=== PATIENT | female | born 1970 | race Caucasian/White ===

== ENCOUNTER 2022-04-22 15:31 | Inpatient (IN) | payer MEDICAID ==
[~2022-04-22] VITALS: Ht 160 cm; Wt 76.7 kg
[2022-04-22 15:35] VITALS: BP_SYST 168
--- NOTE | 2022-04-22 16:34 | NUR ---
Placed in room 04 . Placed on cardiac sonographer, blood pressure machine and pulse oximeter. To gown for exam. Side rails up. Report given to MARLYN TRINIDAD.
[2022-04-22] MEDS ORDERED: ASPIRIN 81 MG TAB.CHEW PO ONE (16:45)
[2022-04-22] MEDS ORDERED: guaiFENesin/DEXTROMETHORPHAN 10 ML UDC PO ONE (16:45)
[2022-04-22] MEDS ORDERED: ALBUTEROL SULFATE 0.083% 2.5 MG/3 ML VIAL.NEB INH ONE (16:45)
[2022-04-22] MEDS ORDERED: methylPREDNISolone SOD SUCC/PF 62.5 MG/ML VIAL IVP ONE (16:45)
[2022-04-22] MEDS ORDERED: IPRATROPIUM BROM 0.5 MG/2.5 ML VIAL.NEB (ATROVENT) INH ONE (16:45)
[2022-04-22 16:59] LABS: BASOPHILS # (AUTO) 0.1 K/uL (0.0-0.2); BASOPHILS % (AUTO) 0.8 % (0.0-2.0); EOSINOPHILS # (AUTO) 0.2 K/uL (0.0-0.4); EOSINOPHILS % (AUTO) 2.2 % (0.0-4.0); HEMATOCRIT 44.5 % (36-48); HEMOGLOBIN 14.9 g/dL (12.0-16.0); LYMPHOCYTES # (AUTO) 2.3 K/uL (1.0-5.5); LYMPHOCYTES % (AUTO) 21.8 % (20.5-51.5); MEAN CORPUSCULAR HEMOGLOBIN 33 pg (27-31); MEAN CORPUSCULAR HGB CONC 33 % (32-36); MEAN CORPUSCULAR VOLUME 99 fL (79.0-98.0); MONOCYTES # (AUTO) 0.7 K/uL (0.0-1.0); MONOCYTES % (AUTO) 6.5 % (1.7-9.3); NEUTROPHILS # (AUTO) 7.3 K/uL (1.8-7.7); NEUTROPHILS % (AUTO) 68.7 % (40.0-70.0); PLATELET COUNT (AUTO) 190 K/uL (130-430); RED BLOOD CELL COUNT(AUTO) 4.52 MIL/uL (4.2-6.2); RED CELL DISTRIBUTION WIDTH 13.9 % (9.0-15.0); WHITE BLOOD COUNT (AUTO) 10.6 K/uL (4.8-10.8)
[2022-04-22 17:19] LABS: ANION GAP 6 (5-15); CHLORIDE 101 mmol/L (98-107); CREATININE 0.73 mg/dL (0.55-1.30); GLUCOSE 105 mg/dL (70-99); UREA NITROGEN, BLOOD 20 mg/dL (8-21)
[2022-04-22 17:24] LABS: ALANINE AMINOTRANSFERASE 39 U/L (12-78); ALBUMIN 3.5 g/dL (3.4-4.8); ASPARTATE AMINOTRANSFERASE 29 U/L (10-37); TOTAL BILIRUBIN 0.2 mg/dL (0.0-1.0)
--- NOTE | 2022-04-22 17:24 | NUR ---
PATIENT IN ROOM 4, ON SIPHONER, BBS WHEZES, C/O LOW BACK PAIN, BIBA SEEN BY EDP WITH ORDER ANNA OUT.
[2022-04-22 17:27] LABS: GFR AFRICAN AMERICAN 108 mL/min (>90)
--- NOTE | 2022-04-22 18:17 | NUR ---
COVID AND INFLUENZA SWABS OBTAINED AND SENT TO LAB.
--- NOTE | 2022-04-22 18:33 | NUR ---
PATIENT REMAINS IN BED, NO ACUTE DISTRESS NOTED.
--- NOTE | 2022-04-22 19:12 | NUR ---
Admit bed requested Patient will be admitted to care of . Admitted to TELEMETRY unit. Diagnosis Inpatient (Yes or No) Y Observation (Yes or No) N Orientation concerns or request close to nursing station (Yes or No) N Covid Status NEG On vent or bipap N Isolation requirements N Needs a sitter N From Home (Yes or if No enter name of facility) Y Requires Dialysis (Yes or No) N Med Rec Completed (Yes of No) PENDING
--- NOTE | 2022-04-22 19:16 | NUR ---
PATIENT STATES SHE DOES NOT TAKE ANY MEDICATION
--- NOTE | 2022-04-22 20:15 | NUR ---
Care was assumed @ 1925, patient resting in bed, easy to arouse, no voiced c/o pain or discomfort at this time. Informed of plan of care aware will be admitted to the hospital, awaiting room assignment. Patient is alert and oriented, no s/s of any respiratory distress, moist cough noted. abd obese and non tender to palpation with positive bowel sounds. Right ac saline lock remains intact, BLE maikel, face maikel and BUE spoted areas of discoloration. Side rails up will continue to monitor. [id number]% on room air.
[2022-04-22] MEDS ORDERED: ACETAMINOPHEN 325 MG TABLET PO PRN (21:30)
[2022-04-22] MEDS ORDERED: ONDANSETRON HCL 4 MG/2 ML VIAL IVP PRN (21:30)
[2022-04-22] MEDS ORDERED: NALOXONE HCL 0.4 MG/ML AMP (NARCAN) IVP PRN ×2 (21:30)
[2022-04-22] MEDS ORDERED: HYDROcodone/ACETAMIN 5-325 MG TAB (NORCO/ VICODIN) PO PRN (21:30)
[2022-04-22 21:51] VITALS: BP_SYST 152
[2022-04-22] MEDS ORDERED: NORMAL SALINE 5 ML DISP.SYRIN IVF SCH (22:00)
--- NOTE | 2022-04-23 01:17 | NUR ---
PATIENT CONTINUES TO REST, REMAINS EASY TO AROUSE NO C/O AT THIS TIME.
--- NOTE | 2022-04-23 01:43 | NUR ---
PATIENT AWAKE ASKING FOR FOOD, NO VOICED C/O.
[2022-04-23] MEDS ORDERED: MORPHINE 4 MG INJ. 4 MG/ML VIAL IVP ONE (02:15)
--- NOTE | 2022-04-23 02:39 | NUR ---
COMPLETE BED CHANGE DONE ALONG WITH A.M. CARE, SCABBED AREA NOTED TO POSTERIOR NECK. REPOSITIONED FOR COMFORT, NO C/O PAIN AT THIS TIME. PATIENT WAS GIVEN A SANDWHICH AND JUICE. SIDE RAIL REMAIN UP. [id number]%-141/97.
[2022-04-23] MEDS: ALBUTEROL SULFATE 0.083% 2.5 MG/3 ML VIAL.NEB INH SCH ×4 (04:14→15:00)
[2022-04-23] MEDS: IPRATROPIUM BROM 0.5 MG/2.5 ML VIAL.NEB (ATROVENT) INH SCH ×4 (04:14→15:00)
--- NOTE | 2022-04-23 04:22 | NUR ---
AWAKE TALKING TO SELF, NO S/S OF ANY DISTRESS NOTED, RAILS REMAIN UP WILL CONTINUE TO MONITOR.
--- NOTE | 2022-04-23 07:16 | NUR ---
Received report from MARLYN Zamorano. Pt observed resting on gurney in no acute distress at this time. Care to be given as ordered by provider.
[2022-04-23 07:48] LABS: BASOPHILS % (AUTO) 0.2 % (0.0-2.0); HEMATOCRIT 40.5 % (36-48); HEMOGLOBIN 13.8 g/dL (12.0-16.0); LYMPHOCYTES # (AUTO) 0.8 K/uL (1.0-5.5); LYMPHOCYTES % (AUTO) 12.1 % (20.5-51.5); MEAN CORPUSCULAR HEMOGLOBIN 33 pg (27-31); MEAN CORPUSCULAR HGB CONC 34 % (32-36); MEAN CORPUSCULAR VOLUME 98 fL (79.0-98.0); MONOCYTES # (AUTO) 0.2 K/uL (0.0-1.0); MONOCYTES % (AUTO) 3.1 % (1.7-9.3); NEUTROPHILS # (AUTO) 5.7 K/uL (1.8-7.7); NEUTROPHILS % (AUTO) 84.6 % (40.0-70.0); PLATELET COUNT (AUTO) 166 K/uL (130-430); RED BLOOD CELL COUNT(AUTO) 4.14 MIL/uL (4.2-6.2); RED CELL DISTRIBUTION WIDTH 13.7 % (9.0-15.0); WHITE BLOOD COUNT (AUTO) 6.8 K/uL (4.8-10.8)
[2022-04-23] MEDS: NORMAL SALINE 5 ML DISP.SYRIN IVF SCH ×4 (08:00→22:03)
[2022-04-23 08:15] LABS: CALCIUM 8.9 mg/dL (8.4-11.0); CREATININE 0.9 mg/dL (0.55-1.30)
--- NOTE | 2022-04-23 10:19 | NUR ---
PATIENT OBSERVED SPEAKING TO THE WALL IN HER ROOM. ARTICULATED THAT SHE IS 52 YO BUT THAT SHE HAS BEEN FOR 50 OF THOSE YEARS. DISCUSSED WITH HOTEL FRONT DESK CLERK ABOUT A PSYCH EVALUATION. CALL PLACED TO DR. RODRÍGUEZ, ORDER FOR TELEPSYCH EVAL GIVEN.
[2022-04-23] MEDS: METHYLPREDNISOLONE SOD SUCC 40 MG/ML VIAL IVP SCH ×2 (11:17→22:03)
[2022-04-23] MEDS ORDERED: METHYLPREDNISOLONE SOD SUCC 40 MG/ML VIAL ONE (11:24)
[2022-04-23] MEDS ORDERED: MORPHINE 4 MG INJ. 4 MG/ML VIAL ONE (11:25)
--- NOTE | 2022-04-23 11:30 | NUR ---
THE COLOR OF PATIENT'S HAIR CHANGED FROM SILVER TO PURPLE AT SOME POINT DURING THE SHIFT. PT DENIES DYING HAIR BUT REQUESTED SHAMPOO AND A TOWEL TO WASH THE DYE OUT.
--- NOTE | 2022-04-23 14:05 | NUR ---
Cell Tester CENTRAL SUPPLY CLERK received a referral to see homeless pt. CENTRAL SUPPLY CLERK introduced self to pt who has been admitted but is still in ED. Pt. had buzzed hair, dyed pink and was asking for her wallet. CENTRAL SUPPLY CLERK and pt. found wallet and it had fallen. Pt looked inside and gave CENTRAL SUPPLY CLERK a card for Sudheer Fam, from [facility] on [address] [place] [place] [address]. Pt. stated she just received a Sec. 8 voucher for [place]. Pt. stated she cant stay on the steet anymore. Pt. began to get excited, but CENTRAL SUPPLY CLERK tried to calm her and offer reassurance she is in a good place. Pt. stated she tries to stay near the [employer] police station. Pt. was making eye contact and stated to CENTRAL SUPPLY CLERK, "I have been for a long time". CENTRAL SUPPLY CLERK asked pt.what she meant. Pt. continued by stating she is 52 and has been for 48 years. Pt. also stated she has a pincher, pinching her nose inside her head. Pt. was asking for clothing when she is able to leave, pt will need a size 3x pants and 3x shirt and jacket. Pt. will need an Uber ride and a lunch. CENTRAL SUPPLY CLERK provided pt. with homeless resource packets. CENTRAL SUPPLY CLERK spoke to Carter Vee and asked her to request a pscy. consult with dr. Simon Nava. If Dr. Nava finds pt. to be gravely disabled she is to call Dr. Duran. It should be noted, pt denied being suicidal. CENTRAL SUPPLY CLERK will remain available as needed and call Mr. Fam. Addendum: 04/24/22 at 1149 by Roxanne MONREAL Cell Tester CENTRAL SUPPLY CLERK made a call to Sudheer Fam, from [facility] but a person, Dusty stated Usaam is not in the office and Dusty is unable to share any info with this caller due to Hipp[place].
[2022-04-23] MEDS ORDERED: AZITHROMYCIN 250 MG TABLET PO ONE (17:30)
[2022-04-23] MEDS ORDERED: AZITHROMYCIN 250 MG TABLET ONE (18:21)
[2022-04-23] MEDS ORDERED: HYDROcodone/ACETAMIN 10-325 MG TAB ONE (18:24)
[2022-04-23] MEDS: IPRATROPIUM/ALBUTEROL SULFATE 3 ML AMPUL.NEB (DUONEB) INH SCH ×2 (19:59→23:54)
--- NOTE | 2022-04-23 20:40 | NUR ---
PT MADE AWARE THAT SHE WILL BE MOVED TO THE FLOOR, PT HAD NO COMPLAINTS CURRENTLY, RESTING IN BED WITH NO ACUTE DISTRESS, VSS.
--- NOTE | 2022-04-23 21:00 | NUR ---
Patient will be admitted to care of [facility]. Admitted to TELE unit. Will go to room 126A. Belongings list completed. Complete and up to date summary report printed. SBAR report to be given at bedside with opportunity for questions.
--- NOTE | 2022-04-23 21:30 | NUR ---
ADMISSION NOTE Received patient from ER via gurney. Patient admitted with diagnosis of COPD EXACERBATION. Patient is awake, alert, oriented X 4. Patient oriented to hospital room, call light, toileting, pain management and safety-teach back done. Patient informed that their room number is 126A. Personal belongings checked and Belongings List documented. Call light within reach.
[2022-04-23 23:24] VITALS: BP_SYST 148
[2022-04-24] MEDS: IPRATROPIUM/ALBUTEROL SULFATE 3 ML AMPUL.NEB (DUONEB) INH SCH ×6 (02:38→23:33)
--- NOTE | 2022-04-24 05:56 | NUR ---
CONSULTATION PAGED/CALLED Reason for Consultation: HALLUCINATIONS/DELUSIONS Person Who was Notified: MILDRED Consulting Physician: HUNG CAPPS Skid Man Specialty: Ordering Physician: MARCOS
[2022-04-24 06:56] LABS: CALCIUM 8.1 mg/dL (8.4-11.0); CREATININE 0.9 mg/dL (0.55-1.30)
[2022-04-24 07:25] VITALS: BP_SYST 133
--- NOTE | 2022-04-24 07:25 | NUR ---
OPENING NOTE Received patient in bed resting, on breathing treatment at the moment. A/O x 4, Turkish speaking. No pain, no SOB, no distress noted at this time. Bedrest, wheelchair bound but states she is able to walk with assistance. IV to RAC 20g on SL. All needs met at this time, bed locked in lowest position, call light within reach. Will continue to monitor.
[2022-04-24 07:51] LABS: BASOPHILS % (AUTO) 0.1 % (0.0-2.0); HEMOGLOBIN 12.6 g/dL (12.0-16.0); LYMPHOCYTES % (AUTO) 13.7 % (20.5-51.5); MEAN CORPUSCULAR HEMOGLOBIN 34 pg (27-31); MEAN CORPUSCULAR HGB CONC 34 % (32-36); MEAN CORPUSCULAR VOLUME 99 fL (79.0-98.0); MONOCYTES # (AUTO) 0.3 K/uL (0.0-1.0); MONOCYTES % (AUTO) 3.4 % (1.7-9.3); NEUTROPHILS # (AUTO) 6.3 K/uL (1.8-7.7); NEUTROPHILS % (AUTO) 82.8 % (40.0-70.0); PLATELET COUNT (AUTO) 159 K/uL (130-430); RED BLOOD CELL COUNT(AUTO) 3.75 MIL/uL (4.2-6.2); RED CELL DISTRIBUTION WIDTH 13.9 % (9.0-15.0); WHITE BLOOD COUNT (AUTO) 7.6 K/uL (4.8-10.8)
[2022-04-24] MEDS: AZITHROMYCIN 250 MG TABLET PO SCH (08:34)
--- NOTE | 2022-04-24 09:47 | NUR ---
PRN YULY Patient complaining of left hip pain and requested some pain medication. Gave PRN pain medication and will reassess.
[2022-04-24] MEDS: HYDROcodone/ACETAMIN 10-325 MG TAB PO PRN ×2 (09:48→20:56)
[2022-04-24] MEDS: METHYLPREDNISOLONE SOD SUCC 40 MG/ML VIAL IVP SCH (10:41)
--- NOTE | 2022-04-24 10:50 | NUR ---
IV site to RAC became dislodged. MARLYN Ospina replaced IV site to LAC, patent and on SL. Addendum: 04/24/22 at 1057 by Yaritza CHERYN GWEN 22G
[2022-04-24 11:27] VITALS: BP_SYST 144
--- NOTE | 2022-04-24 12:05 | NUR ---
PATIENT ROUNDS patient in bed resting. No pain, no SOB, no distress noted at this time. Breathing even and unlabored, on NC. All needs met at this time, bed locked in lowest position, call light within reach. Will continue to monitor.
--- NOTE | 2022-04-24 12:24 | NUR ---
PSYCH CONSULT Dr. Nava with patient via zoom consult.
[2022-04-24] MEDS: NORMAL SALINE 5 ML DISP.SYRIN IVF SCH ×2 (13:39→22:00)
[2022-04-24] MEDS ORDERED: ARIPiprazole 2 MG TAB PO ONE (14:30)
[2022-04-24] MEDS ORDERED: PARoxetine HCL 20 MG TABLET PO ONE (14:30)
--- NOTE | 2022-04-24 15:50 | NUR ---
PATIENT ROUNDS patient in bed resting. No pain, no SOB, no distress noted at this time. Breathing even and unlabored, on NC. Patient was a little upset stating she was hearing voices, patient stated she was a bit agitated but calmed down. All needs met at this time, bed locked in lowest position, call light within reach. Will continue to monitor.
[2022-04-24 16:24] VITALS: BP_SYST 140
[2022-04-24] MEDS ORDERED: METHYLPREDNISOLONE SOD SUCC 40 MG/ML VIAL IVP SCH (18:00)
--- NOTE | 2022-04-24 18:57 | NUR ---
CLOSING NOTE Patient in bed resting. A/O x 4, Latvian speaking. No pain, no SOB, no distress noted at this time. Bedrest, wheelchair bound but states she is able to walk with assistance. IV to RAC 20g on . All needs met at this time, bed locked in lowest position, call light within reach. Will endorse to nightsmeft nurse. Addendum: 04/24/22 at 1900 by Yaritza Onofre LVN IV site is LAC 22g, patent on .
--- NOTE | 2022-04-24 19:00 | NUR ---
PATIENT SITTING UP IN THE BED, AUDIBLE WHEEZING NOTED, WITH COUGHING, O2 @ 2L VIA NC, SOB NOTED ON EXERTION, ABDOMEN SOFT AND NON DISTENDED, DENIES ANY DISCOMFORT AT THIS TIME
[2022-04-24 20:00] VITALS: BP_SYST 151
[2022-04-25] VITALS: BP_SYST 159
--- NOTE | 2022-04-25 | NUR ---
PATIENT ALERT AND ORIENTED X 3, PATIENT ASSISTED WITH PEFORMING A BED BATH AND LINEN CHANGE, NO DISTRESS NOTED AT THIS TIME
[2022-04-25] MEDS: IPRATROPIUM/ALBUTEROL SULFATE 3 ML AMPUL.NEB (DUONEB) INH SCH ×3 (04:39→11:52)
[2022-04-25 06:41] LABS: BASOPHILS % (AUTO) 0.3 % (0.0-2.0); EOSINOPHILS # (AUTO) 0.1 K/uL (0.0-0.4); EOSINOPHILS % (AUTO) 0.7 % (0.0-4.0); HEMATOCRIT 37.3 % (36-48); HEMOGLOBIN 12.5 g/dL (12.0-16.0); LYMPHOCYTES # (AUTO) 3.2 K/uL (1.0-5.5); LYMPHOCYTES % (AUTO) 27.1 % (20.5-51.5); MEAN CORPUSCULAR HEMOGLOBIN 33 pg (27-31); MEAN CORPUSCULAR HGB CONC 33 % (32-36); MEAN CORPUSCULAR VOLUME 100 fL (79.0-98.0); MONOCYTES # (AUTO) 0.6 K/uL (0.0-1.0); MONOCYTES % (AUTO) 5.2 % (1.7-9.3); NEUTROPHILS # (AUTO) 7.8 K/uL (1.8-7.7); NEUTROPHILS % (AUTO) 66.7 % (40.0-70.0); PLATELET COUNT (AUTO) 150 K/uL (130-430); RED BLOOD CELL COUNT(AUTO) 3.74 MIL/uL (4.2-6.2); RED CELL DISTRIBUTION WIDTH 13.9 % (9.0-15.0); WHITE BLOOD COUNT (AUTO) 11.7 K/uL (4.8-10.8)
[2022-04-25] MEDS: NORMAL SALINE 5 ML DISP.SYRIN IVF SCH (06:57)
[2022-04-25 07:11] LABS: CALCIUM 8.1 mg/dL (8.4-11.0); CREATININE 0.7 mg/dL (0.55-1.30)
[2022-04-25 07:40] VITALS: BP_SYST 158; BP_SYST 160
--- NOTE | 2022-04-25 07:50 | NUR ---
PATIENT RESTING QUIETLY THIS AM NO DISTRESS NOTED AT THIS TIME
[2022-04-25] MEDS: AZITHROMYCIN 250 MG TABLET PO SCH (08:41)
[2022-04-25] MEDS: HYDROcodone/ACETAMIN 10-325 MG TAB PO PRN (08:42)
[2022-04-25] MEDS ORDERED: ARIPiprazole 2 MG TAB PO SCH (09:00)
[2022-04-25] MEDS ORDERED: PARoxetine HCL 20 MG TABLET PO SCH (09:00)
[2022-04-25 11:10] VITALS: BP_SYST 158
[2022-04-25] MEDS ORDERED: HYDROCHLOROTHIAZIDE 12.5 MG CAPSULE (HCTZ) PO ONE (11:15)
[2022-04-25 13:45] VITALS: BP_SYST 167
--- NOTE | 2022-04-25 14:10 | NUR ---
Paged MD Smith regarding patient wanting to Leave AMA. Awaiting call back.
--- NOTE | 2022-04-25 14:15 | NUR ---
AMA: Patient does not wish to proceed with medical care recommended by Dr Smith. Patient given information related to possible complications, up to and including , which could occur as a result of leaving hospital at this time. Patient verbalizes understanding of risks involved leaving against medical advice. Patient has signed AMA form.
--- NOTE | 2022-04-25 14:26 | NUR ---
Flat [employer]er AIR QUALITY INSTRUMENT SPECIALIST made a follow up visit at pts. bedside. AIR QUALITY INSTRUMENT SPECIALIST did some research resulting in a few homeless programs she could refer pt. to., [facility], [facility], [facility], [facility] and [facility]. AIR QUALITY INSTRUMENT SPECIALIST met with pt who was calm, was able to carry on a conversation, maintained eye contact. AIR QUALITY INSTRUMENT SPECIALIST asked pt. is she gave consent for AIR QUALITY INSTRUMENT SPECIALIST to place referrals on [place] of pt. Pt. began by stating she feels like she is going to just go back to [place], $8 on the [employer] and was just going to gary handle for the money. Pts mood abruptly changed, her voice began to elevate and pt. became angry stating "everyone was rude and I want to get the hell out of here", pushing the tray away, stating, "get me the paperwork so I can leave!". AIR QUALITY INSTRUMENT SPECIALIST reasurned pt. she would leave so pt. could rest. Pt. stated she just needed to leave. AIR QUALITY INSTRUMENT SPECIALIST brought this encounter up to the assigned Rn, Norman and Dago. AIR QUALITY INSTRUMENT SPECIALIST will remain available as needed.
[2022-04-26] MEDS ORDERED: HYDROCHLOROTHIAZIDE 12.5 MG CAPSULE (HCTZ) PO SCH (09:00)
== END 2022-04-25 14:15 | disposition left against medical advice (07) | DRG 140 ==
LOC: SED 15:31 → STU 19:10
PROVIDERS: ADMIT Preventive Medicine Preventive Medicine/Occupational Environmental Medicine; ATTEND Preventive Medicine Preventive Medicine/Occupational Environmental Medicine
DX: J44.1 Chronic obstructive pulmonary disease with (acute) exacerbation (principal); J96.01 Acute respiratory failure with hypoxia; R65.11 Systemic inflammatory response syndrome (SIRS) of non-infectious origin with acute organ dysfunction; E83.51 Hypocalcemia; F17.210 Nicotine dependence, cigarettes, uncomplicated; F33.9 Major depressive disorder, recurrent, unspecified; Z20.822 Contact with and (suspected) exposure to COVID-19; D72.829 Elevated white blood cell count, unspecified; Z59.00 Homelessness unspecified
CPT/HCPCS: 36415; 71045; 80048; 80053; 83880; 84484; 85025; 93005; 94640; 94760; 96374; 99285; G0378; J1030; J2270; J2930; J7030; J7613; Q0144

== ENCOUNTER 2022-05-24 13:11 | Emergency (ER) | payer MEDICAID ==
[~2022-05-24] VITALS: Ht 160 cm; Wt 79.4 kg
[2022-05-24 13:16] VITALS: BP_SYST 172
--- NOTE | 2022-05-24 13:27 | NUR ---
ER DR. VICTOR EXAMINING PT
--- NOTE | 2022-05-24 13:42 | NUR ---
PT BIBA FROM THE STREET C/O EPIGASTIC, UPPER ABD PAIN X 1 MONTH. PT ALSO STATES SHE HAS BEEN HAVING DIARRHEA. PT IS AAOX4, VSS, AMBULATORY ON ARRIVAL
--- NOTE | 2022-05-24 13:42 | NUR ---
Patient triaged and placed in waiting room. VSS and patient appears in no acute distress at this time. Accompanied by [], awaiting available bed, and MD notified of need for MSE. Addendum: 05/24/22 at 1342 by [email or web address] Patient triaged and placed in waiting room. VSS and patient appears in no acute distress at this time. Accompanied by SELF, awaiting available bed, and MD notified of need for MSE.
[2022-05-24 14:13] LABS: BASOPHILS % (AUTO) 0.5 % (0.0-2.0); EOSINOPHILS # (AUTO) 0.1 K/uL (0.0-0.4); EOSINOPHILS % (AUTO) 1.7 % (0.0-4.0); HEMATOCRIT 41.5 % (36-48); LYMPHOCYTES % (AUTO) 24.6 % (20.5-51.5); MEAN CORPUSCULAR HEMOGLOBIN 33 pg (27-31); MEAN CORPUSCULAR HGB CONC 34 % (32-36); MEAN CORPUSCULAR VOLUME 99 fL (79.0-98.0); MONOCYTES # (AUTO) 0.5 K/uL (0.0-1.0); MONOCYTES % (AUTO) 5.8 % (1.7-9.3); NEUTROPHILS # (AUTO) 5.4 K/uL (1.8-7.7); NEUTROPHILS % (AUTO) 67.4 % (40.0-70.0); PLATELET COUNT (AUTO) 160 K/uL (130-430); RED BLOOD CELL COUNT(AUTO) 4.21 MIL/uL (4.2-6.2); RED CELL DISTRIBUTION WIDTH 14.5 % (9.0-15.0); WHITE BLOOD COUNT (AUTO) 8.1 K/uL (4.8-10.8)
[2022-05-24 14:29] LABS: PROTHROMBIN TIME 10.6 SECS (9.5-12.5)
[2022-05-24 14:34] LABS: ANION GAP 8 (5-15); CALCIUM 8.2 mg/dL (8.4-11.0); CHLORIDE 102 mmol/L (98-107); CREATININE 0.74 mg/dL (0.55-1.30); GLUCOSE 104 mg/dL (70-99); UREA NITROGEN, BLOOD 20 mg/dL (8-21)
[2022-05-24 14:35] LABS: GFR AFRICAN AMERICAN 106 mL/min (>90)
[2022-05-24 14:38] LABS: ALANINE AMINOTRANSFERASE 28 U/L (12-78); ALBUMIN 3.6 g/dL (3.4-4.8); AMYLASE 34 U/L (0-100); ASPARTATE AMINOTRANSFERASE 30 U/L (10-37); LACTATE DEHYDROGENASE 244 U/L (81-234); LIPASE 76 U/L (73-393); TOTAL BILIRUBIN 0.4 mg/dL (0.0-1.0)
[2022-05-24 14:40] LABS: C-REACTIVE PROTEIN QUANT < 0.2 mg/dL (0-0.5)
[2022-05-24 15:15] LABS: ACETONE, SERUM NEGATIVE (NEGATIVE)
[2022-05-24] MEDS ORDERED: MAG HYDROX/AL HYDROX/SIMETH 30 ML, DICYCLOMINE HCL 20 MG, LIDOCAINE VISCOUS 2% 15ML (PO... PO ONE ×3 (15:30)
[2022-05-24 15:48] LABS: BILIRUBIN,URINE NEGATIVE (NEGATIVE); BLOOD, URINE 1+ (NEGATIVE); COLOR,URINE YELLOW (YELLOW); GLUCOSE,URINE NEGATIVE (NEGATIVE); KETONES,URINE NEGATIVE (NEGATIVE); LEUKOCYTE ESTERASE ,URINE 1+ (NEGATIVE); NITRITE, URINE NEGATIVE (NEGATIVE); PROTEIN URINE NEGATIVE (NEGATIVE); UROBILINOGEN,URINE 0.2 (0.2-1.0)
[2022-05-24 15:57] LABS: CLARITY/URINE HAZY (CLEAR)
[2022-05-24 15:59] LABS: BACTERIA,URINE FEW /HPF (None Seen); CALCIUM OXALATE CRYSTALS,UR 0-10 /HPF (None Seen); MUCUS,URINE None Seen /LPF (None Seen); RBC,URINE 0-3 /HPF (0-3)
[2022-05-24] MEDS ORDERED: OMEP40CA20 PO (16:18)
[2022-05-24] MEDS ORDERED: ONDA-8 TL (16:18)
[2022-05-24] MEDS ORDERED: ACET-2634 PO (16:18)
[2022-05-24 16:31] VITALS: BP_SYST 172
--- NOTE | 2022-05-24 16:32 | NUR ---
Patient given written and verbal discharge instructions and verbalizes understanding. ER MD discussed with patient the results and treatment provided. Patient in stable condition. ID arm band removed. Rx of Tylenol,zofran and Omeprazole given. Patient educated on pain management and to follow up with PMD. Pain Scale 2/10. Opportunity for questions provided and answered. Medication side effect fact sheet provided.
== END 2022-05-24 16:32 | disposition home or self-care (01) ==
LOC: SED 13:11
DX: K57.90 Diverticulosis of intestine, part unspecified, without perforation or abscess without bleeding (principal); R10.13 Epigastric pain; R11.0 Nausea; J44.9 Chronic obstructive pulmonary disease, unspecified; Z79.899 Other long term (current) drug therapy
CPT/HCPCS: 99284; 74176; 80053; 81000; 82009; 82150; 84703; 83615; 83690; 85025; 85610; 85730; 86140; 87086; 84484; 36415; 76376; 81025; 83605; J2001

== ENCOUNTER 2024-01-25 21:48 | Emergency (ER) | payer MEDICAID ==
[~2024-01-25] VITALS: Ht 160 cm; Wt 124.7 kg
[~2024-01-25 21:48] MED LIST: ACET-2634 PO; OMEP40CA20 PO; ONDA-8 TL
[2024-01-25 22:14] VITALS: BP_SYST 111; PULSE 78; RESP 18; TEMP 97.2; O2SAT 98
[2024-01-26 00:05] LABS: BILIRUBIN,URINE NEGATIVE (NEGATIVE); BLOOD, URINE NEGATIVE (NEGATIVE); CLARITY/URINE CLEAR (CLEAR); COLOR,URINE YELLOW (YELLOW); GLUCOSE,URINE NEGATIVE (NEGATIVE); KETONES,URINE NEGATIVE (NEGATIVE); LEUKOCYTE ESTERASE ,URINE NEGATIVE (NEGATIVE); NITRITE, URINE NEGATIVE (NEGATIVE); PROTEIN URINE NEGATIVE (NEGATIVE); UROBILINOGEN,URINE 0.2 (0.2-1.0)
[2024-01-26 00:07] LABS: BASOPHILS # (AUTO) 0.3 K/uL (0.0-0.2); BASOPHILS % (AUTO) 3.6 % (0.0-2.0); EOSINOPHILS # (AUTO) 0.4 K/uL (0.0-0.4); EOSINOPHILS % (AUTO) 5.9 % (0.0-4.0); HEMATOCRIT 46.9 % (36-48); HEMOGLOBIN 15.9 g/dL (12.0-16.0); LYMPHOCYTES # (AUTO) 1.9 K/uL (1.0-5.5); LYMPHOCYTES % (AUTO) 24.4 % (20.5-51.5); MEAN CORPUSCULAR HEMOGLOBIN 35 pg (27-31); MEAN CORPUSCULAR HGB CONC 34 % (32-36); MEAN CORPUSCULAR VOLUME 103 fL (79.0-98.0); MONOCYTES # (AUTO) 0.4 K/uL (0.0-1.0); MONOCYTES % (AUTO) 5.6 % (1.7-9.3); NEUTROPHILS # (AUTO) 4.6 K/uL (1.8-7.7); NEUTROPHILS % (AUTO) 60.5 % (40.0-70.0); PLATELET COUNT (AUTO) 169 K/uL (130-430); RED BLOOD CELL COUNT(AUTO) 4.56 MIL/uL (4.2-6.2); RED CELL DISTRIBUTION WIDTH 13.7 % (9.0-15.0); WHITE BLOOD COUNT (AUTO) 7.7 K/uL (4.8-10.8)
[2024-01-26 00:19] LABS: CALCIUM 8.8 mg/dL (8.4-11.0); CREATININE 0.72 mg/dL (0.55-1.30); POTASSIUM 3.6 mmol/L (3.5-5.1)
[2024-01-26 02:23] VITALS: BP_SYST 124; PULSE 77; RESP 18; TEMP 98; O2SAT 97
== END 2024-01-26 02:15 | disposition home or self-care (01) ==
LOC: SED 21:48
DX: M13.862 Other specified arthritis, left knee (principal); M13.861 Other specified arthritis, right knee; J44.9 Chronic obstructive pulmonary disease, unspecified; Z79.899 Other long term (current) drug therapy; Z79.2 Long term (current) use of antibiotics
CPT/HCPCS: 36415; 73560; 80048; 81001; 81003; 85025; 99284

== ENCOUNTER 2024-02-21 22:42 | Emergency (ER) | payer MEDICAID ==
[~2024-02-21] VITALS: Ht 167.6 cm; Wt 81.6 kg
[2024-02-21 23:06] VITALS: BP_SYST 128; PULSE 82; RESP 16; TEMP 96.9; O2SAT 98
[2024-02-22 02:07] LABS: BASOPHILS # (AUTO) 0.1 K/uL (0.0-0.2); BASOPHILS % (AUTO) 0.9 % (0.0-2.0); EOSINOPHILS # (AUTO) 0.3 K/uL (0.0-0.4); EOSINOPHILS % (AUTO) 5.2 % (0.0-4.0); HEMATOCRIT 43.9 % (36-48); LYMPHOCYTES # (AUTO) 2.2 K/uL (1.0-5.5); MEAN CORPUSCULAR HEMOGLOBIN 35 pg (27-31); MEAN CORPUSCULAR HGB CONC 34 % (32-36); MEAN CORPUSCULAR VOLUME 103 fL (79.0-98.0); MONOCYTES # (AUTO) 0.5 K/uL (0.0-1.0); MONOCYTES % (AUTO) 8.7 % (1.7-9.3); NEUTROPHILS # (AUTO) 2.8 K/uL (1.8-7.7); NEUTROPHILS % (AUTO) 47.2 % (40.0-70.0); PLATELET COUNT (AUTO) 184 K/uL (130-430); RED BLOOD CELL COUNT(AUTO) 4.28 MIL/uL (4.2-6.2); RED CELL DISTRIBUTION WIDTH 13.9 % (9.0-15.0); WHITE BLOOD COUNT (AUTO) 5.9 K/uL (4.8-10.8)
[2024-02-22 02:23] LABS: ALBUMIN 3.3 g/dL (3.4-4.8); BILIRUBIN,DIRECT 0.1 mg/dL (0.0-0.3); CREATININE 0.75 mg/dL (0.55-1.30); POTASSIUM 3.2 mmol/L (3.5-5.1); TOTAL BILIRUBIN 0.1 mg/dL (0.0-1.0); TOTAL PROTEIN, SERUM 6.7 g/dL (6.4-8.3)
[2024-02-22 03:15] LABS: BILIRUBIN,URINE NEGATIVE (NEGATIVE); BLOOD, URINE NEGATIVE (NEGATIVE); CLARITY/URINE CLEAR (CLEAR); COLOR,URINE YELLOW (YELLOW); GLUCOSE,URINE NEGATIVE (NEGATIVE); KETONES,URINE TRACE (NEGATIVE); LEUKOCYTE ESTERASE ,URINE NEGATIVE (NEGATIVE); NITRITE, URINE NEGATIVE (NEGATIVE); PROTEIN URINE NEGATIVE (NEGATIVE); UROBILINOGEN,URINE 0.2 (0.2-1.0)
[2024-02-22] MEDS: POTASSIUM CHLORIDE 20 MEQ/PKT PACKET PO ONE (03:25)
[2024-02-22 03:35] LABS: BARBITURATE, URINE NEGATIVE (NEG <=200); METHAMPHETAMINES SCREEN,URINE NEGATIVE (NEG <=500); URINE AMPHETAMINE NEGATIVE (NEG <=500)
[2024-02-22 03:36] LABS: BENZODIAZEPINE, URINE NEGATIVE (NEG <=150); CANNABINOID, URINE NEGATIVE (NEG <=50); COCAINE, URINE NEGATIVE (NEG <=150); OPIATE, URINE NEGATIVE (NEG <=100); PHENCYCLIDINE SCREEN,URINE NEGATIVE (NEG <=25); UR TRICYCLIC ANTIDEPRESSANTS NEGATIVE (NEG <=300); URINE METHADONE NEGATIVE (NEG <=200); URINE OXYCODONE SCREEN NEGATIVE (NEG <=100)
[2024-02-22] MEDS: POTASSIUM CHLORIDE 20 MEQ TABLET.ER PO ONE (04:12)
[2024-02-22] MEDS ORDERED: IBUP-1969 PO (04:13)
[2024-02-22 05:56] VITALS: BP_SYST 151; PULSE 89; RESP 20; TEMP 97.4; O2SAT 92
== END 2024-02-22 05:56 | disposition home or self-care (01) ==
LOC: SED 22:42
DX: S09.90XA Unspecified injury of head, initial encounter (principal); E87.6 Hypokalemia; J44.9 Chronic obstructive pulmonary disease, unspecified; Z79.899 Other long term (current) drug therapy; W05.0XXA Fall from non-moving wheelchair, initial encounter; Y93.89 Activity, other specified; Y92.89 Other specified places as the place of occurrence of the external cause; Y99.8 Other external cause status
CPT/HCPCS: 99284; 70450; 80307; 80076; 80048; 85025; 36415; 72125; 81003; 81001; G0482